=== PATIENT | female | born 1990 | race Hispanic/Latino ===

== ENCOUNTER 2016-06-05 08:24 | Emergency (ER) | payer OTHER ==
[~2016-06-05] VITALS: Ht 157.5 cm; Wt 60.9 kg
[~2016-06-05 08:24] MED LIST: Docusate Sodium PO; HYDROcodone-APAP 5-325 PO; IBUP800T28 PO; NORE0.354 PO; OMPR20CCR PO
[2016-06-05 08:26] VITALS: BP 113/66; PULSE 94; RESP 14; O2SAT 100
--- NOTE | 2016-06-05 08:51 | ED.REPORT ---
HPI- Female Date of Service Jun 05, 2016 ED Provider: Rogelio Flores MD The patient is a 25 year old otherwise healthy female who presents to the emergency department complaining of pelvic cramping that began a few days ago. The patient is currently about 6 weeks . She is concerned that she is having a miscarriage. She also complains of nausea and a "stomach ache." The achy pain is different from the cramping. She states, "I just feel really weird and am worried I am not anymore." She denies vaginal bleeding, vaginal discharge, fever, chills, vomiting or diarrhea. This is her 5th , she denies previous tubal pregnancies or any other complications. Nursing Notes Stated Complaint: 6WKS /ABDOMINAL PAIN Chief Complaint: Female Abdominal Pain Nursing Notes Reviewed: Yes ([employer] not reconciled) Allergies: Coded Allergies: Cephalexin Monohydrate (Verified Allergy, Severe, DIFFICULTY BREATHING, ) Penicillins (Verified Allergy, Severe, DIFFICULTY BREATHING, 11/03/14) ondansetron (Unverified Adverse Reaction, Intermediate, Shortness of Breath, 10/23/14) Scheduled Norethindrone (Nor-Q-D) 0.35 Mg Tablet 0.35 MG PO DAILY Omeprazole-Expunged Drug, Do Not Renew! (Omeprazole-Expunged Drug, Do Not Renew! ) 20 Mg Capsule.dr 20 MG PO DAILY Scheduled PRN ([Docusate Sodium]) 100 MG CAPSULE 100 MG PO DAILY PRN PRN For Constipation ([HYDROcodone-APAP 5-325]) 1 TABLET TABLET 1-2 TABLET PO Q4H PRN PRN For Pain Ibuprofen (Ibuprofen) 800 Mg Tablet 800 MG PO Q6H PRN PRN For Pain Ibuprofen (Ibuprofen) 800 Mg Tablet 800 MG PO TID PRN PRN For Pain General Time Seen by : 08:32 Chief Complaint Pelvic pain Hx Obtained From: Patient Arrived By: Walk-in Sudden in Onset?: Yes Onset Occurred: 3 days ago Symptom Duration: Since onset Location: : Abdomen lower Quality: Aching (diffuse), Cramping (pelvic) Severity: Current: Mild Severity: Maximum: Moderate Status: Positive - home urine HCG : 5 Recent Healthcare: No recent hospitalization, Recent doctor visit Similar Sx Previous: No Past Medical History Past Medical History chronic back pain Reports: Asthma Past Surgical History Reports: Cholecystectomy Family History Noncontributory Smoking History Never Smoker Social History Alcohol Use: Denies alcohol use Drug Use: Denies drug use Other Social History: Local resident Ambulatory Status Independent Review of Systems Constitutional: Denies: Chills, Fever GI: Reports: Abdominal pain, Nausea, Denies: Diarrhea, Vomiting Female: Reports: Pelvic pain, , Denies: Vaginal bleeding - abnl, Vaginal discharge Complete sys rev & neg: except as marked. Physical Exam Initial Vital Signs Vital Signs (First) Date Time Temp Pulse Resp B/P Pulse Ox O2 Delivery O2 Flow Rate FiO2 06/05/16 08:26 36.2 94 14 113/66 100 Room Air Initial VS: Reviewed, Vital signs normal Head / Eyes: Atraumatic, Normocephalic, PERRL ENT: Mucous membranes moist, Conjunctiva normal, No scleral icterus Neck: Supple, Non-tender, Full range of motion Respiratory: Breath sounds normal, Clear to auscultation, No respiratory distress Cardiovascular: Regular rate & rhythm, Heart sounds normal, Intact distal pulses Lymphatic: No lymphadenopathy Extremities: Vascular intact, Neuro intact, No swelling, No tenderness Skin: Warm, Dry, No cyanosis Neurologic: Alert, Oriented, Nonfocal Psychiatric: Mood/affect normal, Behavior normal, Normal thought content Female Genitourinary: Exam deferred General/Constitutional: Awake, Alert, No acute distress, Cooperative Abdomen: Atraumatic, Soft, Non-tender, McBurney's non-tender, No guarding, No rebound, BS normoactive, No distention, No hernia, No palpable mass, No pulsatile mass Interpretation & Diagnostics Interpretation & Diagnostics: US: IUP, measuring at 6 weeks 6 days, small rama-gestational Lab Results Interpretation Result Diagram: 06/05/16 1041 Test 06/05/16 10:41 White Blood Count 8.3th/mm3 (3.8-10.1) Red Blood Count 3.97mil/mm3 (3.90-5.20) Hemoglobin 11.0g/dL (12.0-15.6) Hematocrit 33.5% (35.0-46.0) Mean Corpuscular Volume 84.4fL (81-100) Mean Corpuscular Hemoglobin 27.7pg (27.0-35.0) Mean Corpuscular Hemoglobin Concent 32.8% (32.0-37.0) Red Cell Distribution Width 14.7% (12.3-15.4) Platelet Count 214bil/L (150-400) Neutrophils (%) (Auto) 67.5% (40-74) Lymphocytes (%) (Auto) 22.5% (14-46) Monocytes (%) (Auto) 6.9% (4-12) Eosinophils (%) (Auto) 2.5% (0-5) Basophils (%) (Auto) 0.2% (0-3) HCG Beta Subunit [id number]/mL Lab Results Interpretation: CBC normal Quant positive Rh+ Re-Eval/Medical Decision Med Decision/Clinical Course This is a 25-year-old female said urine positive at the office, as a first follow-up appointment in early June, in the past few days she has had some abdominal cramping without bleeding, but "just has not felt right" and that she "does not feel anymore" some ongoing nausea, and has a prescription for nausea medicine she has not filled her had to take. She denies fevers chills or bleeding. She has had no previous problems with her previous pregnancies. Vital signs clinically well-appearing with a soft nontender abdomen. Ultrasound revealed a 6 week 6 day IUP, small. Gestational bleed was noted, heart tones were normal. Records normal, patient's Rh+ A dangerous cause has not been identified. Routine precautions reviewed, patient's reassured, discharged in improved condition. Source of Hx: Old records Re-Evaluation/Progress : Time of Eval: 11:40 Re-Evaluation/Progress Note: Rechecked the patient. Discussed plan for discharge. All questions were addressed. Counseled Regarding: Diagnosis, Lab results, Need for follow-up, When/why to return to ED Discharge & Departure Impression: Primary Impression: Intrauterine Disposition: Home Discharge Condition All VS Reviewed: Yes Condition: Stable Additional Instructions: 1. You have a 6 week 6 day intrauterine with normal heart tones and rate evident on ultrasound. 2. No dangerous cause her problem with the was identified, although there is a very small "Perigestational bleed" which can commonly occur. It is true that large bleeds can occasionally to miscarriages, and there is no intervention that time-but there are no findings at this time that this small rama-gestational bleed is going to cause a full miscarriage. 3. Continue vitamins 4. Follow-up with Dr. Kay 5. Return if new or worsening symptoms Referrals: Gabriela Cristina MD (PCP) Michael Attestation Portions of this note were transcribed by Pamela Miranda. I, Dr. Flores personally performed the history, physical exam and medical decision-making; I reviewed and confirmed the accuracy of the information in the transcribed note. Signed by: Michael Arguelles, 06/05/2016 at 1145. copies to: Gabriela Cristina MD, Matthew F MD Jun 05, 2016 08:51 Pamela Miranda Jun 05, 2016 09:07
[2016-06-05 10:47] LABS: BASOPHILS % (AUTO) 0.2 % (0-3); EOSINOPHILS % (AUTO) 2.5 % (0-5); MONOCYTES % (AUTO) 6.9 % (4-12); Mean Corpuscular Hemoglobin 27.7 pg (27.0-35.0); Mean Corpuscular Volume 84.4 fL (81-100); NEUTROPHILS % (AUTO) 67.5 % (40-74); Platelet Count 214 bil/L (150-400)
[2016-06-05 11:48] VITALS: BP 116/68; PULSE 90; RESP 16; O2SAT 100
--- NOTE | 2016-06-05 15:43 | DRSVH ---
PROCEDURE: US OB<14 WKS+OB TRANSVAG INDICATIONS: pain ro ectopic OUTSIDE/PRIOR DATING DATA: . First dating scan (date and location): 06/05/16. Estimated date of delivery (CRISTINA) from first dating scan: 01/23/17. TECHNIQUE: Real-time scanning was performed of the fetus and maternal pelvic organs, with image documentation. Endovaginal scanning was also performed to better visualize the fetus and maternal ovaries. COMPARISON: None. FINDINGS: Embryo: [employer] DIRECT[employer] Ultrasound Procedure Report Early Gestation [employer] [place] Rump Length: 8.50 mm Gestational Age (CRL): 6 weeks, 6 days Summary Fetus Summary Heart Rate: 130 bpm Comments: A normal yolk sac is noted. Small perigestational site bleed side measuring 9 x 4 x 27 mm Measurement variability in dating: +/- 4 weeks by LMP, +/- 7 days by mean sac diameter (use before 6 weeks gestation if crown-rump length not able to be measured), +/- 5 days by crown-rump length (6-12 weeks gestation). Maternal organs: Ovaries within normal limits, with small corpus of the cyst on the left measuring 3 1 mm. Limited images through the kidneys demonstrate no hydronephrosis. IMPRESSION: 6 week 6 day single living IUP and small perigestational site bleed site. Dictated by: Nish HARO Interpreted: Ad Engel MD on 06/05/2016 at 15:40 Transcribed by: ABDULAZIZ on 06/05/2016 at 15:43 Approved by: Ad Engel M.D. on 06/05/2016 at 16:13
== END 2016-06-05 11:49 | disposition home or self-care (01) ==
LOC: SED 08:24
DX: O26.891 Other specified pregnancy related conditions, first trimester (principal); R10.2 Pelvic and perineal pain; J45.909 Unspecified asthma, uncomplicated; Z3A.01 Less than 8 weeks gestation of pregnancy; Z88.0 Allergy status to penicillin; Z88.8 Allergy status to other drugs, medicaments and biological substances

== ENCOUNTER 2016-10-01 11:09 | Emergency (ER) | payer OTHER ==
[~2016-10-01] VITALS: Ht 157.5 cm; Wt 59.1 kg
[2016-10-01 11:11] VITALS: BP 113/75; PULSE 87; RESP 16; O2SAT 97
--- NOTE | 2016-10-01 11:49 | ED.REPORT ---
HPI- Female Date of Service Oct 01, 2016 ED Provider: Rogelio Flores MD 26 y/o 5 weeks female () presents to the ED complaining of back pain, onset a couple of days ago. The pt states this is her 4th and she has had normal deliveries so far but at her last visit 4 months ago, she had reported being 6 weeks . Today, the pt also complains of cramping, spotting and nausea. She denies heavy bleeding, fever, dysuria, vomiting and lower extremity edema. The pt is still looking for an OB. Nursing Notes Stated Complaint: 5 WKS /SPOTTING/BACK PAIN Chief Complaint: Female Abdominal Pain Nursing Notes Reviewed: Yes ([employer] not reconciled) Allergies: Coded Allergies: Cephalexin Monohydrate (Verified Allergy, Severe, DIFFICULTY BREATHING, ) Penicillins (Verified Allergy, Severe, DIFFICULTY BREATHING, 11/03/14) ondansetron (Unverified Adverse Reaction, Intermediate, Shortness of Breath, 10/23/14) Scheduled Norethindrone (Nor-Q-D) 0.35 Mg Tablet 0.35 MG PO DAILY Omeprazole-Expunged Drug, Do Not Renew! (Omeprazole-Expunged Drug, Do Not Renew! ) 20 Mg Capsule.dr 20 MG PO DAILY Vit W-Ca,Fe,FA(<1 mg) ( Vitamins) 1 Each Tablet 1 EACH PO DAILY Scheduled PRN ([Docusate Sodium]) 100 MG CAPSULE 100 MG PO DAILY PRN PRN For Constipation ([HYDROcodone-APAP 5-325]) 1 TABLET TABLET 1-2 TABLET PO Q4H PRN PRN For Pain Ibuprofen (Ibuprofen) 800 Mg Tablet 800 MG PO Q6H PRN PRN For Pain Ibuprofen (Ibuprofen) 800 Mg Tablet 800 MG PO TID PRN PRN For Pain General Time Seen by MD: 11:31 Chief Complaint Other (back pain) Hx Obtained From: Patient Arrived By: Walk-in Sudden in Onset?: No Onset Occurred: 2 days ago Symptom Duration: Since onset Location: : Back Quality: Painful Radiation: Does not radiate Severity: Current: Moderate Severity: Maximum: Moderate : 5 Para: 3 Recent Healthcare: Recent doctor visit Similar Sx Previous: No Past Medical History Past Medical History (Rh+ per EMR 05/2016) chronic back pain Reports: Asthma Past Surgical History Reports: Cholecystectomy Family History Noncontributory Smoking History Never Smoker Social History Alcohol Use: Denies alcohol use Drug Use: Denies drug use Other Social History: Local resident Ambulatory Status Independent Review of Systems Reports: cramping Reports: spotting Denies heavy bleeding Constitutional: Denies: Fever GI: Reports: Nausea, Denies: Vomiting Female: Denies: Dysuria Musculoskeletal: Reports: Back pain Complete sys rev & neg: except as marked. Cardiovascular: Denies: Edema Physical Exam Initial Vital Signs Vital Signs (First) Date Time Temp Pulse Resp B/P Pulse Ox O2 Delivery O2 Flow Rate FiO2 10/01/16 11:11 36.5 87 16 113/75 97 Room Air Initial VS: Reviewed, Vital signs normal Head / Eyes: Atraumatic, Normocephalic Neck: Supple, Non-tender, Full range of motion Respiratory: Breath sounds normal, Clear to auscultation, No respiratory distress Cardiovascular: Regular rate & rhythm, Heart sounds normal, Intact distal pulses Abdomen / GI: Soft, Non-tender Extremities: Vascular intact, Neuro intact, No swelling, No tenderness Skin: Warm, Dry, No cyanosis Neurologic: Alert, Oriented, Nonfocal Female Genitourinary: Exam deferred General/Constitutional: Awake, Alert, No acute distress, Cooperative Interpretation & Diagnostics Lab Results Interpretation Result Diagram: 10/01/16 1153 Test 10/01/16 11:40 10/01/16 11:53 Urine Color Yellow (YELLOW) Urine Appearance Hazy (CLEAR,HAZY) Urine pH 6.0 (5.0-8.0) Urine Specific [place] 1.030 (1.003-1.035) Urine Protein Tracemg/dL (NEG,TRACE) Urine Glucose (UA) Negativemg/dL (NEGATIVE) Urine Ketones Negativemg/dL (NEGATIVE) Urine Occult Blood Negative (NEGATIVE) Urine Nitrite Negative (NEGATIVE) Urine Bilirubin Negative (NEGATIVE) Urine Urobilinogen Normalmg/dL (NORMAL) Urine Leukocyte Esterase Small (NEGATIVE) Urine RBC 0-2/hpf (0-2) Urine WBC 0-5/hpf (0-5) Urine Epithelial Cells Occasional/hpf (NONE-MOD) Urine Crystals None seen (NONE SEEN) Urine Bacteria Moderate/hpf (NONE-FEW) Urine Hyaline Casts None/lpf (NONE) Urine Granular Casts None seen (NONE SEEN) Urine Waxy Casts None seen (NONE SEEN) Urine Red Blood Cell Casts None seen (NONE SEEN) Urine White Blood Cell Casts None seen (NONE SEEN) Urine Mucus Present (None Seen) Urine Trichomonas None seen (NONE SEEN) Urine Yeast None (NONE SEEN) Urinalysis Comment None Urine Culture Reflexed Indicated White Blood Count 6.0th/mm3 (3.8-10.1) Red Blood Count 3.94mil/mm3 (3.90-5.20) Hemoglobin 11.2g/dL (12.0-15.6) Hematocrit 33.7% (35.0-46.0) Mean Corpuscular Volume 85.5fL (81-100) Mean Corpuscular Hemoglobin 28.4pg (27.0-35.0) Mean Corpuscular Hemoglobin Concent 33.2% (32.0-37.0) Red Cell Distribution Width 15.4% (12.3-15.4) Platelet Count 225bil/L (150-400) Neutrophils (%) (Auto) 60.6% (40-74) Lymphocytes (%) (Auto) 27.6% (14-46) Monocytes (%) (Auto) 8.6% (4-12) Eosinophils (%) (Auto) 2.8% (0-5) Basophils (%) (Auto) 0.2% (0-3) HCG Beta Subunit [id number]/mL Hold [place] Top Tube Received (Received) Lab Results Interpretation: CBC normal CMP normal Quantitative hCG fits with a dual Rh+ per EMR record Urine dip suggested possible infection, before urinalysis argues against this, antibiotics not indicated at this time Re-Eval/Medical Decision Med Decision/Clinical Course This is a pleasant 26-year-old female presents reporting that she is got home positive test, still some pelvic cramping and a trace amount of spotting. She thinks she may be about 4-5 weeks . She is in the process of moving to [facility] and is not yet have an OB established. She has no prior history of ectopic, or overt ectopic risk factors. She has normal vitals, and clinically appears well. She has a soft nontender abdomen. is positive, hCG is elevated-and ultrasounds reveals 2 gestational sacs and suggests early in the approximately 5 week range. Patient's advised of these findings, she clinically appears well again-has a soft nontender abdomen, normal vitals-so close follow-up and repeat imaging or laboratory testing are indicated. As mentioned the patient does not yet have the OB over at [facility] picked out, and I have explained she should call to try and schedule appointment, but if she has difficulty obtaining a follow-up she can return to the ED for reevaluation if needed because at this stage a definitive cause of the spotting and cramping cannot be established, and ectopic is not fully excluded. Patient is aware that if she has new or worsening symptoms-increasing pain or bleeding to return to the emergency department directly. Patient's couple of this. She is recommended take Tylenol if needed for discomfort, and is given a prescription for vitamins. Records indicate that she is Rh+, RhoGAM is not indicated. She is discharged in good condition after routine and return precautions. Source of Hx: Old records Re-Evaluation/Progress : Time of Eval: 13:29 Re-Evaluation/Progress Note: Rechecked pt. Discussed lab results, imaging results, diagnosis and plan to discharge. Pt understands and agrees with the plan. F/U instructions and RTER warning given. All questions addressed. Differential Diagnosis: Negative: , complete, Abruptio placentae, Abscess, Active labor, premature, Active labor, term, Bartholin's abscess, Jhoan-Mckenzie contraction, Cellulitis, Cystitis, acute, Dysfunct uterine bleeding, Dysmenorrhea, Menometrorrhagia, Menorrhagia, Menses, Molar , Nephrolithiasis, Pyelonephritis, acute, Urinary tract infection Counseled Regarding: Diagnosis, Lab results, Need for follow-up, When/why to return to ED Discharge & Departure Impression: Primary Impression: Weeks of gestation: less than 8 weeks Qualified Code: Z3A.01 - Less than 8 weeks gestation of Additional Impression: Vaginal spotting Disposition: Home Discharge Condition All VS Reviewed: Yes Condition: Stable Additional Instructions: 1. Your ultrasound and bloodwork suggest the possibility of an early twin (about 5 weeks). We see two "gestational sacs" which fits with such an early , but you are early enough that we can not see all the features of a defined intra-uterine and you will need to be rechecked again early next week. Call the COMPUTER HARDWARE DESIGNER office 2. Take vitamins. 3. You can take tylenol 1000mg up to three times a day as needed for pain/ cramping. 4. Return to the ED if new or worsening symptoms. Referrals: [facility] Scribe Attestation Portions of this note were transcribed by Jose Rojas. I,, personally performed the history, physical exam and medical decision-making;I reviewed and confirmed the accuracy of the information in the transcribed note. Signed by Michael Sharma. 10/01/16 13:29 Rogelio Flores MD Oct 01, 2016 11:49 Jose Rojas Oct 01, 2016 12:38
[2016-10-01 12:01] LABS: BASOPHILS % (AUTO) 0.2 % (0-3); EOSINOPHILS % (AUTO) 2.8 % (0-5); MONOCYTES % (AUTO) 8.6 % (4-12); Mean Corpuscular Hemoglobin 28.4 pg (27.0-35.0); Mean Corpuscular Volume 85.5 fL (81-100); NEUTROPHILS % (AUTO) 60.6 % (40-74); Platelet Count 225 bil/L (150-400)
[2016-10-01 12:17] LABS: APPEARANCE,URINE HAZY (CLEAR,HAZY); COLOR,URINE YELLOW (YELLOW)
[2016-10-01 12:18] LABS: OCCULT BLOOD,URINE NEGATIVE (NEGATIVE); UROBILINOGEN,URINE NORMAL (NORMAL)
[2016-10-01] MEDS ORDERED: PREN1TAB87 PO (13:41)
[2016-10-01 13:47] VITALS: BP 118/64; PULSE 71; RESP 16; O2SAT 97
--- NOTE | 2016-10-01 14:29 | DRSVH ---
PROCEDURE: US OB<14 WEEKS FOR TWINS AND TRANSVAGINAL INDICATIONS: 5wks preg OUTSIDE/PRIOR DATING DATA: Last menstrual period (LMP): Not available. LMP-based estimated date of delivery (CRISTINA): Not available. First dating scan (date and location): This exam. Estimated date of delivery (CRISTINA) from first dating scan: 05/30/2017. TECHNIQUE: Real-time scanning was performed of the fetuses and maternal pelvic organs, with image documentation. Endovaginal scanning: Performed for better visualization of the fetuses and maternal adnexal structu res. COMPARISON: [facility], , OB<14 WKS+OB TRANSVAG, 06/05/2016, 9:53. FINDINGS: General: An intrauterine diamniotic dichorionic twin is present, as evidenced by separate placental sites and/or intervening membrane thickness of greater than 2 mm at this early gestational age. There is a small sonolucency in the lower uterine segment compatible with perigestational bleed . Embryo A: 6 weeks 0 day by mean sac dimension. There is a yolk sac. No pole visualized. Embryo B: 5 weeks 4 day by mean sac dimension. There is a yolk sac. No pole visualized. Measurement variability in dating: +/- 4 weeks by LMP, +/- 7 days by mean sac diameter (use before 6 weeks gestation if crown-rump length unable to be measured), +/- 5 days by crown-rump length (up to 8 weeks 6 days gestation), +/- 7 days by crown-rump length (up to 13 weeks 6 days gestation). Maternal organs: There is a corpus luteal cyst in the right ovary measuring 2.3 cm.. Limited images through the kidneys demonstrate no hydronephrosis. IMPRESSION: 1. Diamnionic dichorionic twin . poles are not visualized, which could be due to early gestational age. Recommend clinical correlation and followup. 2. The estimated gestational age for twin A is 6 weeks 0 day; the estimated gestational age for twin B is 5 weeks 4 days. 3. Small perigestational bleed in the lower uterine segment. Dictated by: Arnaldo Mireles M.D. on 10/01/2016 at 14:15 Approved by: Arnaldo Mireles M.D. on 10/01/2016 at 14:27
== END 2016-10-01 13:48 | disposition home or self-care (01) ==
LOC: SED 11:09
DX: O26.851 Spotting complicating pregnancy, first trimester (principal); Z3A.01 Less than 8 weeks gestation of pregnancy; Z88.0 Allergy status to penicillin; Z88.1 Allergy status to other antibiotic agents; Z88.8 Allergy status to other drugs, medicaments and biological substances

== ENCOUNTER 2016-10-08 10:58 | Emergency (ER) | payer OTHER ==
[~2016-10-08] VITALS: Ht 157.5 cm; Wt 62.3 kg
[~2016-10-08 10:58] MED LIST changes: +PREN1TAB87 PO
[2016-10-08 11:07] VITALS: BP 118/74; PULSE 90; RESP 14; O2SAT 98
--- NOTE | 2016-10-08 12:15 | ED.REPORT ---
HPI-Preg Under 20 Weeks Date of Service Oct 08, 2016 ED Provider: Brenda Lyon History of Present Illness: seen last week, had ultrasound here for recheck. Venkata rayoalana will be OB appointment 10/28. no spotting. no pain. Nursing Notes Stated Complaint: CHECK UP Chief Complaint: & Delivery Nursing Notes Reviewed: Yes Allergies: Coded Allergies: Cephalexin Monohydrate (Verified Allergy, Severe, DIFFICULTY BREATHING, ) Penicillins (Verified Allergy, Severe, DIFFICULTY BREATHING, 11/03/14) ondansetron (Unverified Adverse Reaction, Intermediate, Shortness of Breath, 10/23/14) Scheduled Norethindrone (Nor-Q-D) 0.35 Mg Tablet 0.35 MG PO DAILY Omeprazole-Expunged Drug, Do Not Renew! (Omeprazole-Expunged Drug, Do Not Renew! ) 20 Mg Capsule.dr 20 MG PO DAILY Vit W-Ca,Fe,FA(<1 mg) ( Vitamins) 1 Each Tablet 1 EACH PO DAILY Scheduled PRN ([Docusate Sodium]) 100 MG CAPSULE 100 MG PO DAILY PRN PRN For Constipation ([HYDROcodone-APAP 5-325]) 1 TABLET TABLET 1-2 TABLET PO Q4H PRN PRN For Pain Ibuprofen (Ibuprofen) 800 Mg Tablet 800 MG PO Q6H PRN PRN For Pain Ibuprofen (Ibuprofen) 800 Mg Tablet 800 MG PO TID PRN PRN For Pain General Time Seen by Provider: 12:15 Chief Complaint Other (here for recheck) Hx Obtained From: Patient Onset Occurred: More than a week ago... (2 weeks) Progression Since Onset: Unchanged Past Medical History Past Medical History (Rh+ per EMR 05/2016) chronic back pain Reports: Asthma Past Surgical History Reports: Cholecystectomy Family History Noncontributory Smoking History Never Smoker Social History Alcohol Use: Denies alcohol use Drug Use: Denies drug use Other Social History: Local resident Ambulatory Status Independent Review of Systems Basic Review of Systems ENT: Hearing NL, No pain, No nasal congestion, No pharyngeal pain Allergy / Immune: No allergy Psychiatric: Normal thought content Physical Exam Initial Vital Signs Vital Signs (First) Date Time Temp Pulse Resp B/P Pulse Ox O2 Delivery O2 Flow Rate FiO2 10/08/16 11:07 36.5 90 14 118/74 98 Room Air Initial VS: Reviewed, Vital signs normal Head / Eyes: Atraumatic, Normocephalic, PERRL ENT: Mucous membranes moist, Conjunctiva normal, No scleral icterus Neck: Supple, Non-tender, Full range of motion Respiratory: Breath sounds normal, Clear to auscultation, No respiratory distress Cardiovascular: Regular rate & rhythm, Heart sounds normal, Intact distal pulses Back: No CVA tenderness Lymphatic: No lymphadenopathy Extremities: Vascular intact, Neuro intact, No swelling, No tenderness Skin: Warm, Dry, No cyanosis Neurologic: Alert, Oriented, Nonfocal Psychiatric: Mood/affect normal, Behavior normal, Normal thought content General/Constitutional: Awake, Alert, No acute distress, Well appearing, Well developed, Well hydrated, Well nourished, Cooperative, Not toxic appearing Abdomen: Atraumatic, Soft, Non-tender Female Genitourinary: Exam deferred Respiratory / Chest: Atraumatic, Breath sounds NL, Breath sounds = bilat, No respiratory distress Cardiovascular: Heart rate NL, Regular rhythm, Heart sounds NL, No gallop Interpretation & Diagnostics Lab Results Interpretation Result Diagram: 10/08/16 1236 Test 10/08/16 12:36 10/08/16 14:14 Hemoglobin 12.3g/dL (12.0-15.6) Hematocrit 36.9% (35.0-46.0) HCG Beta Subunit [id number]/mL Hold Urine Received (Received) US Focused OB PROCEDURE: US OB<14 WEEKS FOR TWINS AND TRANSVAGINAL INDICATIONS: Evaluate for an ectopic gestation OUTSIDE/PRIOR DATING DATA: Last menstrual period (LMP): Not available. LMP-based estimated date of delivery (CRISTINA): Not available. First dating scan (date and location): 10/01/16. Estimated date of delivery (CRISTINA) from first dating scan: 05/30/17. TECHNIQUE: Real-time scanning was performed of the fetuses and maternal pelvic organs, with image documentation. Endovaginal scanning: Performed for better visualization of the fetuses and maternal adnexal structures. COMPARISON: [facility], , US OB<14 WKS+TWINS+TV, 10/01/2016, 11:32. FINDINGS: General: An intrauterine dichorionic twin is present, as evidenced by separate placental sites and/or intervening membrane thickness of greater than 2 mm at this early gestational age. Embryo A: Viable gestation, 139 beats per minute heart rate. Note is made that the gestational sac on the right is asymmetrically larger than that on the left, twin A versus twin B. Embryo B: Viable gestation, 129 beats per minute heart rate. Maternal organs: Ovaries normal considering gestational status. Limited images through the kidneys demonstrate no hydronephrosis. No suspicion for underlying ectopic gestation. IMPRESSION: The twin gestation, dichorionic, is again noted, with cardiac activity seen at each gestation. As noted above the gestational sac dimension is asymmetrically larger for twin A than for twin B, the uncertain clinical significance at this early stage of . Followup is recommended in approximately 2 weeks. Dictated by: Kyle Carney M.D. on 10/08/2016 at 16:31 Approved by: Kyle Carney M.D. on 10/08/2016 at 16:37 Re-Eval/Medical Decision Med Decision/Clinical Course 26 year old presents for evualation of twin after being seen in the ER last week. Patient denies pain or spotting. HCG indicates the value is rising. US indicates twin gestational sacs with cardiac activity. No sign of ectopic or kidney stone. Discharge & Departure Primary Impression: Intrauterine Disposition: Home Patient Instructions: (ED), Diet (GEN) Additional Instructions: Your labs are fine. The Ultrasound does show 2 gestational sacs in the uterus. At this time there is no sign of ectopic . Start prenatals vitamins. Keep your OB appointment that you have scheduled. Referrals: OTHER,PHYSICIAN EDSupervising Provider for APC: Johan Weber MD copies to: OTHER,PHYSICIAN Brenda Lyon Oct 08, 2016 12:15
--- NOTE | 2016-10-08 16:39 | DRSVH ---
PROCEDURE: US OB<14 WEEKS FOR TWINS AND TRANSVAGINAL INDICATIONS: Evaluate for an ectopic gestation OUTSIDE/PRIOR DATING DATA: Last menstrual period (LMP): Not available. LMP-based estimated date of delivery (CRISTINA): Not available. First dating scan (date and location): 10/01/16. Estimated date of delivery (CRISTINA) from first dating scan: 05/30/17. TECHNIQUE: Real-time scanning was performed of the fetuses and maternal pelvic organs, with image documentation. Endovaginal scanning: Performed for better visualization of the fetuses and maternal adnexal structu res. COMPARISON: [facility], , OB<14 WKS+TWINS+TV, 10/01/2016, 11:32. FINDINGS: General: An intrauterine dichorionic twin is present, as evidenced by separate placental s ites and/or intervening membrane thickness of greater than 2 mm at this early gestational age. Embryo A: Viable gestation, 139 beats per minute heart rate. Note is made that the gestational sac o n the right is asymmetrically larger than that on the left, twin A versus twin B. Embryo B: Viable gestation, 129 beats per minute heart rate. Maternal organs: Ovaries normal considering gestational status. Limited images through the kidneys demonstrate no hydronephrosis. No suspicion for underlying ectopic gestation. IMPRESSION: The twin gestation, dichorionic, is again noted, with cardiac activity seen at each gestation. As noted above the gestational sac dimension is asymmetrically larger for twin A than fo r twin B, the uncertain clinical significance at this early stage of . Followup is recommen ded in approximately 2 weeks. Dictated by: Kyle Carney M.D. on 10/08/2016 at 16:31 Approved by: Kyle Carney M.D. on 10/08/2016 at 16:37
[2016-10-08 16:45] VITALS: BP 128/77; PULSE 74; RESP 16; O2SAT 100
[2016-10-08 16:58] VITALS: BP 128/77; PULSE 74; RESP 16; O2SAT 100
== END 2016-10-08 16:59 | disposition home or self-care (01) ==
LOC: SED 10:58
DX: O30.041 Twin pregnancy, dichorionic/diamniotic, first trimester (principal); J45.909 Unspecified asthma, uncomplicated; Z3A.01 Less than 8 weeks gestation of pregnancy; Z88.0 Allergy status to penicillin; Z88.1 Allergy status to other antibiotic agents; Z88.8 Allergy status to other drugs, medicaments and biological substances

== ENCOUNTER 2016-10-11 12:44 | Emergency (ER) | payer OTHER ==
[~2016-10-11] VITALS: Ht 157.5 cm; Wt 59.1 kg
[2016-10-11 12:54] VITALS: BP 116/52; PULSE 81; RESP 15; O2SAT 99
--- NOTE | 2016-10-11 13:08 | ED.REPORT ---
HPI-Preg Under 20 Weeks Date of Service Oct 11, 2016 ED Provider: History of Present Illness: ate at a [employer] truck yesterday. This morning vomited the food up. Feels weak and shaky and vomiting and abd pain. [place] in [place] will be ob. no primary care seen here 2 days ago, US done at that time. Nursing Notes Stated Complaint: NAUSEA/VOMITING Chief Complaint: Female Abdominal Pain Nursing Notes Reviewed: Yes Allergies: Coded Allergies: Cephalexin Monohydrate (Verified Allergy, Severe, DIFFICULTY BREATHING, ) Penicillins (Verified Allergy, Severe, DIFFICULTY BREATHING, 11/03/14) metoclopramide (Verified Adverse Reaction, Intermediate, RESTLESS, ANXIOUS , 10/11/16) ondansetron (Unverified Adverse Reaction, Intermediate, Shortness of Breath, 10/23/14) Scheduled Norethindrone (Nor-Q-D) 0.35 Mg Tablet 0.35 MG PO DAILY Omeprazole-Expunged Drug, Do Not Renew! (Omeprazole-Expunged Drug, Do Not Renew! ) 20 Mg Capsule.dr 20 MG PO DAILY Vit W-Ca,Fe,FA(<1 mg) ( Vitamins) 1 Each Tablet 1 EACH PO DAILY Scheduled PRN ([Docusate Sodium]) 100 MG CAPSULE 100 MG PO DAILY PRN PRN For Constipation ([HYDROcodone-APAP 5-325]) 1 TABLET TABLET 1-2 TABLET PO Q4H PRN PRN For Pain Ibuprofen (Ibuprofen) 800 Mg Tablet 800 MG PO Q6H PRN PRN For Pain Ibuprofen (Ibuprofen) 800 Mg Tablet 800 MG PO TID PRN PRN For Pain General Time Seen by Provider: 13:07 Chief Complaint Abdominal pain, Hx Obtained From: Patient Onset Occurred: 5 - 8 hours ago Past Medical History Past Medical History (Rh+ per EMR 05/2016) chronic back pain Reports: Asthma Past Surgical History Reports: Cholecystectomy Family History Noncontributory Smoking History Never Smoker Social History Alcohol Use: Denies alcohol use Drug Use: Denies drug use Other Social History: Local resident Occupation single lives by self no work or school 10/11/2016 Ambulatory Status Independent Review of Systems Basic Review of Systems ENT: Hearing NL, No pain, No nasal congestion, No pharyngeal pain Psychiatric: Normal thought content Physical Exam Initial Vital Signs Vital Signs (First) Date Time Temp Pulse Resp B/P Pulse Ox O2 Delivery O2 Flow Rate FiO2 10/11/16 12:54 36.8 81 15 116/52 99 10/11/16 18:31 Room Air Initial VS: Reviewed, Vital signs normal Head / Eyes: Atraumatic, Normocephalic, PERRL ENT: Mucous membranes moist, Conjunctiva normal, No scleral icterus Neck: Supple, Non-tender, Full range of motion Respiratory: Breath sounds normal, Clear to auscultation, No respiratory distress Cardiovascular: Regular rate & rhythm, Heart sounds normal, Intact distal pulses Back: No CVA tenderness Lymphatic: No lymphadenopathy Extremities: Vascular intact, Neuro intact, No swelling, No tenderness Skin: Warm, Dry, No cyanosis Neurologic: Alert, Oriented, Nonfocal Psychiatric: Mood/affect normal, Behavior normal, Normal thought content General/Constitutional: Awake, Alert, No acute distress, Well appearing, Well developed, Well hydrated Abdomen: Atraumatic, Soft, Non-tender, McBurney's non-tender, No guarding, No rebound, No distention ENT: Atraumatic, Airway patent, Mucous membranes moist, Pharynx NL Respiratory / Chest: Atraumatic, Breath sounds NL, Breath sounds = bilat, No respiratory distress Cardiovascular: Heart rate NL, Regular rhythm, Heart sounds NL, No gallop Interpretation & Diagnostics Lab Results Interpretation Result Diagram: 10/11/16 1415 10/11/16 1415 Test 10/11/16 13:51 10/11/16 14:15 Urine Color Yellow (YELLOW) Urine Appearance Clear (CLEAR,HAZY) Urine pH 7.5 (5.0-8.0) Urine Specific [place] 1.020 (1.003-1.035) Urine Protein Tracemg/dL (NEG,TRACE) Urine Glucose (UA) Negativemg/dL (NEGATIVE) Urine Ketones Tracemg/dL (NEGATIVE) Urine Occult Blood Negative (NEGATIVE) Urine Nitrite Negative (NEGATIVE) Urine Bilirubin Negative (NEGATIVE) Urine Urobilinogen Normalmg/dL (NORMAL) Urine Leukocyte Esterase Small (NEGATIVE) Urine RBC 0-2/hpf (0-2) Urine WBC 0-5/hpf (0-5) Urine Epithelial Cells Few/hpf (NONE-MOD) Urine Crystals None seen (NONE SEEN) Urine Bacteria Few/hpf (NONE-FEW) Urine Hyaline Casts None/lpf (NONE) Urine Granular Casts None seen (NONE SEEN) Urine Waxy Casts None seen (NONE SEEN) Urine Red Blood Cell Casts None seen (NONE SEEN) Urine White Blood Cell Casts None seen (NONE SEEN) Urine Mucus Present (None Seen) Urine Trichomonas None seen (NONE SEEN) Urine Yeast None (NONE SEEN) Urinalysis Comment None Urine Culture Reflexed Indicated White Blood Count 13.8th/mm3 (3.8-10.1) Red Blood Count 4.15mil/mm3 (3.90-5.20) Hemoglobin 11.8g/dL (12.0-15.6) Hematocrit 35.3% (35.0-46.0) Mean Corpuscular Volume 85.1fL (81-100) Mean Corpuscular Hemoglobin 28.4pg (27.0-35.0) Mean Corpuscular Hemoglobin Concent 33.4% (32.0-37.0) Red Cell Distribution Width 15.6% (12.3-15.4) Platelet Count 224bil/L (150-400) Neutrophils (%) (Auto) 84.9% (40-74) Lymphocytes (%) (Auto) 9.6% (14-46) Monocytes (%) (Auto) 3.9% (4-12) Eosinophils (%) (Auto) 1.2% (0-5) Basophils (%) (Auto) 0.1% (0-3) Sodium Level 136mEq/L (134-144) Potassium Level 3.8mEq/L (3.5-5.2) Chloride Level 102mEq/L (97-108) Carbon Dioxide Level 20mmol/L (18-29) Blood Urea Nitrogen 10mg/dL (6-20) Creatinine 0.46mg/dL (0.57-1.00) Estimat Glomerular Filtration Rate 233mL/min (>59) Glucose Level 90mg/dL (60-99) Calcium Level 8.4mg/dL (8.5-10.1) Total Bilirubin 0.9mg/dL (0.0-1.2) Aspartate Amino Transf (AST/SGOT) 16U/L (0-50) Alanine Aminotransferase (ALT/SGPT) 10U/L (0-32) Alkaline Phosphatase 55U/L (25-150) Total Protein 7.1g/dL (6.4-8.4) Albumin 4.2g/dL (3.4-5.0) HCG Beta Subunit [id number]/mL US Focused OB PROCEDURE: US ABDOMEN ([id number]) INDICATIONS: abd pain vomiting TECHNIQUE: Real-time scanning was performed of the abdominal and retroperitoneal organs, with image documentation. COMPARISON: [facility], US, US OB<14 WKS+TWINS+TV, 10/08/2016, 14:33. FINDINGS: Liver unremarkable measuring 14 cm in length. No intrahepatic ductal dilatation. The gallbladder is surgically absent. No extrahepatic biliary ductal dilatation. The pancreas and spleen are within normal limits. Right and left kidneys measure 11.0 cm in length. Proximal aorta and common iliac arteries are unremarkable. LMP unknown. First dating examination 10/08/16 corresponding to an CRISTINA of 05/31/16. There is a diamniotic dichorionic twin gestation. Only heart rates were obtained per ordering clinician request Fetus A: No heart rate identified. There is a small rama-gestational fluid collection presumably hematoma. Fetus B.: heart rate measures 161 beats per minute. IMPRESSION: Intrauterine twin gestation, however no heart rate obtained for fetus A suggesting demise. Small rama-gestational hemorrhage. This could be confirmed with followup pelvic ultrasound in one week. heart rate for fetus B measures 161 beats per abby Unremarkable abdominal ultrasound as above. Status post cholecystectomy Dictated by: Fazal Farr M.D. on 10/11/2016 at 19:43 Approved by: Fazal Farr M.D. on 10/11/2016 at 19:55 Re-Eval/Medical Decision Med Decision/Clinical Course 26 year old female presents for vomiting since this am. Patient ate at a [employer] truck yesterday and she vomited up the food. Patient has not been having any nausea with her . US shows Twin A does not have cardiac activity. Twin B does. Discharge & Departure Primary Impression: demise Additional Impression: Intrauterine Disposition: Home Patient Instructions: Intrauterine Demise (ED), (ED), Diet (GEN) Additional Instructions: Your urine looks good. The labs show a mild elevation in your wbc at 13. The ultrasound shows your gallbladder is rmoved. There are no stones in the common duct. The ultrasound does show that twin A does not have a heart beat any more. Twin B still has a heart beat of 162. In speaking with Dr. Isaacs she said it is entirely possible to carry the to term. Twin A may be reabsorbed or there may be some bleeding. Please follow with Dr. Mejia office for follow up. Please call on Thursday and see if you can be seen sooner. I am sorry this happened. Referrals: OTHER,PHYSICIAN EDSupervising Provider for APC: Sreekanth Red DO copies to: OTHER,PHYSICIAN Brenda Lyon Oct 11, 2016 13:08
[2016-10-11] MEDS ORDERED: MetoCLOpramide 5 mg/mL 2 mL Inj IVPUSH ONE (13:15)
[2016-10-11] MEDS ORDERED: 0.9% Sodium Chloride 1,000 ML IV ONE (13:15)
[2016-10-11 14:37] LABS: BASOPHILS % (AUTO) 0.1 % (0-3); EOSINOPHILS % (AUTO) 1.2 % (0-5); MONOCYTES % (AUTO) 3.9 % (4-12); Mean Corpuscular Hemoglobin 28.4 pg (27.0-35.0); Mean Corpuscular Volume 85.1 fL (81-100); NEUTROPHILS % (AUTO) 84.9 % (40-74); Platelet Count 224 bil/L (150-400)
[2016-10-11 15:35] LABS: APPEARANCE,URINE CLEAR (CLEAR,HAZY); COLOR,URINE YELLOW (YELLOW); PH,URINE 7.5 (5.0-8.0)
[2016-10-11 15:36] LABS: OCCULT BLOOD,URINE NEGATIVE (NEGATIVE); UROBILINOGEN,URINE NORMAL (NORMAL)
[2016-10-11 18:31] VITALS: BP 101/54; PULSE 87; RESP 12; O2SAT 99
--- NOTE | 2016-10-11 19:57 | DRSVH ---
PROCEDURE: US ABDOMEN ([id number]) INDICATIONS: abd pain vomiting TECHNIQUE: Real-time scanning was performed of the abdominal and retroperitoneal organs, with image documentatio n. COMPARISON: [facility], US, US OB<14 WKS+TWINS+TV, 10/08/2016, 14:33. FINDINGS: Liver unremarkable measuring 14 cm in length. No intrahepatic ductal dilatation. The gallbladder is s urgically absent. No extrahepatic biliary ductal dilatation. The pancreas and spleen are within earlene l limits. Right and left kidneys measure 11.0 cm in length. Proximal aorta and common iliac arteries are unremarkable. LMP unknown. First dating examination 10/08/16 corresponding to an CRISTINA of 05/31/16. There is a diamniotic dichorionic twin gestation. Only heart rates were obtained per ordering c linician request Fetus A: No heart rate identified. There is a small rama-gestational fluid collection presumabl y hematoma. Fetus B.: heart rate measures 161 beats per minute. IMPRESSION: Intrauterine twin gestation, however no heart rate obtained for fetus A suggesting demise . Small rama-gestational hemorrhage. This could be confirmed with followup pelvic ultrasound in one w elem. heart rate for fetus B measures 161 beats per abby Unremarkable abdominal ultrasound as above. Status post cholecystectomy Dictated by: Fazal Farr M.D. on 10/11/2016 at 19:43 Approved by: Fazal Farr M.D. on 10/11/2016 at 19:55
== END 2016-10-11 18:37 | disposition home or self-care (01) ==
LOC: SED 12:44 → EDUNIT# 12:44 → EDBD 12:44 → SED 18:37
DX: O31.21X1 Continuing pregnancy after intrauterine death of one fetus or more, first trimester, fetus 1 (principal); Z3A.00 Weeks of gestation of pregnancy not specified; Z88.0 Allergy status to penicillin; Z88.1 Allergy status to other antibiotic agents; Z88.8 Allergy status to other drugs, medicaments and biological substances
CPT/HCPCS: 36415; 76700; 80053; 81000; 84702; 85025; 87086; 87088; 96361; 96374; 96375; 99285; J1200; J2765; J7030